=== PATIENT | female | born 1935 | race Caucasian/White ===

== ENCOUNTER 2019-10-22 14:13 | Emergency (ER) | payer MEDICARE, OTHER ==
[~2019-10-22] VITALS: Ht 160 cm; Wt 46.3 kg
[~2019-10-22 14:13] MED LIST: ALBU2.5V7 NEB; LEVO50TA8 PO; PARO10TA86 PO; SIMV-46 PO
--- NOTE | 2019-10-22 14:40 | NUR ---
Dr. Power at bedside for MSE
[2019-10-22] MEDS ORDERED: predniSONE 20 MG TABLET ONE (14:57)
[2019-10-22] MEDS: predniSONE 10 MG TABLET PO ONE (15:00)
[2019-10-22 15:29] LABS: BASOPHILS # (AUTO) 0.2 K/uL (0.0-8.0); EOSINOPHILS # (AUTO) 0.4 K/uL (0.0-0.7); EOSINOPHILS % (AUTO) 6.7 % (0.0-7.0); HEMATOCRIT 38.3 % (31.2-41.9); HEMOGLOBIN 12.8 g/dL (10.9-14.3); LYMPHOCYTES # (AUTO) 1.8 K/uL (20.0-40.0); LYMPHOCYTES % (AUTO) 27.3 % (20.5-51.5); MEAN CORPUSCULAR HEMOGLOBIN 29.8 uug (24.7-32.8); MEAN CORPUSCULAR HGB CONC 34 g/dL (32.3-35.6); MEAN CORPUSCULAR VOLUME 88.8 fL (75.5-95.3); MONOCYTES # (AUTO) 0.6 K/uL (2.0-10.0); MONOCYTES % (AUTO) 9.4 % (0.0-11.0); NEUTROPHILS # (AUTO) 3.5 K/uL (1.8-8.9); NEUTROPHILS % (AUTO) 53.6 % (38.5-71.5); PLATELET COUNT (AUTO) 192 K/uL (179-408); RED BLOOD CELL COUNT(AUTO) 4.31 MIL/uL (3.63-4.92); WHITE BLOOD COUNT (AUTO) 6.5 K/uL (3.8-11.8)
[2019-10-22 15:34] LABS: POTASSIUM 4.2 mmol/L (3.5-5.1)
[2019-10-22 15:46] LABS: BILIRUBIN,DIRECT 0.1 mg/dL (0.0-0.2); BILIRUBIN,TOTAL 0.4 mg/dL (0.2-1.0); TOTAL PROTEIN, SERUM 6.7 g/dL (6.4-8.2)
--- NOTE | 2019-10-22 16:10 | NUR ---
Patient discharged to home in stable condition. Written and verbal after care instructions given. Patient verbalizes understanding of instructions. Stressed follow up or return to ER for worsening s/s. Patient ambulating with steady gait. NAD noted
[2019-10-22 16:12] VITALS: BP 118/75
== END 2019-10-22 16:10 | disposition home or self-care (01) ==
LOC: ER 14:13
DX: J20.9 Acute bronchitis, unspecified (principal); J42 Unspecified chronic bronchitis; E03.9 Hypothyroidism, unspecified; E78.5 Hyperlipidemia, unspecified; Z87.01 Personal history of pneumonia (recurrent); Z79.899 Other long term (current) drug therapy; I49.3 Ventricular premature depolarization
CPT/HCPCS: 36415; 71045; 76604; 80048; 80076; 83880; 84484; 85025; 93005; 93308; 99285; J7512; 70030-TC; A4663

== ENCOUNTER 2024-07-06 04:54 | Inpatient (IN) | payer MEDICARE ==
[~2024-07-06] VITALS: Ht 160 cm; Wt 44.1 kg
[2024-07-06] MEDS: IV NORMAL SALINE 500 ML BAG IV ONE (05:15)
[2024-07-06] MEDS: MORPHINE SULFATE 2 MG/1 ML DISP.SYRIN IV ONE (05:15)
[2024-07-06] MEDS: FAMOTIDINE. 20 MG/2 ML VIAL IV ONE (05:15)
[2024-07-06 05:37] LABS: BASOPHILS # (AUTO) 0.1 K/UL (0.0-0.2); EOSINOPHILS # (AUTO) 0.2 K/uL (0.0-0.7); EOSINOPHILS % (AUTO) 1.3 % (0.0-7.0); LYMPHOCYTES # (AUTO) 1.3 K/uL (0.8-4.8); MONOCYTES # (AUTO) 0.6 K/uL (0.1-1.30)
[2024-07-06 05:46] LABS: CALCIUM 9.9 mg/dL (8.5-10.1); CARBON DIOXIDE 25 mmol/L (21-32); CHLORIDE 104 mmol/L (98-107); CREATININE 0.8 mg/dL (0.6-1.3); GLUCOSE 179 mg/dL (74-106); POTASSIUM 4.2 mmol/L (3.5-5.1); SODIUM SERUM 139 mmol/L (136-145); UREA NITROGEN, BLOOD 29 mg/dL (7-18)
[2024-07-06 05:49] LABS: DIFFERENTIAL COMMENT 1
[2024-07-06 05:52] LABS: ALANINE AMINOTRANSFERASE 30 U/L (14-59); ALBUMIN 3.8 g/dL (3.4-5.0); ALKALINE PHOSPHATASE 83 U/L (50-136); ASPARTATE AMINOTRANSFERASE 28 U/L (15-37); BILIRUBIN,DIRECT 0.2 mg/dL (0.0-0.2); BILIRUBIN,TOTAL 0.8 mg/dL (0.2-1.0); LIPASE 34 U/L (16-77); TOTAL PROTEIN, SERUM 6.7 g/dL (6.4-8.2)
[2024-07-06 05:57] LABS: NUCLEATED RED BLOOD CELLS 0.1 /100WBC
[2024-07-06] MEDS ORDERED: MORPHINE SULFATE 2 MG/1 ML DISP.SYRIN ONE (06:14)
[2024-07-06] MEDS ORDERED: FAMOTIDINE. 20 MG/2 ML VIAL IV ONE (06:14)
[2024-07-06 06:29] LABS: HEMATOCRIT 41.5 % (31.2-41.9); RED BLOOD CELL COUNT(AUTO) 4.65 MIL/uL (3.63-4.92); WHITE BLOOD COUNT (AUTO) 12.2 K/uL (3.8-11.8)
[2024-07-06 06:30] LABS: LYMPHOCYTES % (AUTO) 10.4 % (20.5-51.5); MEAN CORPUSCULAR HEMOGLOBIN 30.1 uug (24.7-32.8); MEAN CORPUSCULAR HGB CONC 34 g/dL (32.3-35.6); MEAN CORPUSCULAR VOLUME 89.4 fL (75.5-95.3); NEUTROPHILS % (AUTO) 82.7 % (38.5-71.5); PLATELET COUNT (AUTO) 178 K/uL (179-408); RED CELL DISTRIBUTION WIDTH 14.1 % (12.3-17.7)
[2024-07-06 06:31] LABS: BASOPHILS % (AUTO) 0.5 % (0.0-2.0); MONOCYTES % (AUTO) 5.1 % (0.0-11.0); NEUTROPHILS # (AUTO) 10.1 K/uL (1.8-8.9); NEUTROPHILS % (MANUAL) 0 % (42-75)
[2024-07-06] MEDS ORDERED: LIDOCAINE 2% (GLYDO= UROJET) 10 ML JELLY MM ONE (07:07)
[2024-07-06] MEDS: LIDOCAINE 2% (GLYDO= UROJET) 10 ML JELLY MM ONE (07:40)
[2024-07-06] MEDS: IV NS 1000 ML 1,000 ML IV ONE (07:40)
[2024-07-06 10:10] VITALS: BP 98/62; TEMP 97.9; O2SAT 94
[2024-07-06 11:02] VITALS: O2SAT 96
[2024-07-06] MEDS ORDERED: MULT-225 PO (11:19)
[2024-07-06] MEDS ORDERED: PARO20TA7 PO (11:19)
[2024-07-06] MEDS ORDERED: ASCO500C18 PO (11:19)
[2024-07-06] MEDS ORDERED: CALC-343 PO (11:20)
[2024-07-06] MEDS ORDERED: OMEG1CAP74 PO (11:20)
[2024-07-06] MEDS ORDERED: CALC-1026 PO (11:21)
[2024-07-06] MEDS ORDERED: ERGO400C PO (11:23)
[2024-07-06] MEDS ORDERED: UBID10CA4 PO (11:24)
[2024-07-06] MEDS ORDERED: SELE200C PO (11:24)
[2024-07-06] MEDS ORDERED: REMEDY ESSENTIAL ZINC PASTE 113 GM TP PRN (12:45)
[2024-07-06] MEDS ORDERED: ONDANSETRON 4 MG/2 ML VIAL IV PRN (12:45)
[2024-07-06] MEDS ORDERED: KETOROLAC TROMETHAMINE 15 MG INJ IVP PRN (12:45)
[2024-07-06] MEDS: IV NS 1000 ML 1,000 ML IV PRN (13:35)
[2024-07-06] MEDS ORDERED: DIATR MEGLU/DIATRIZOATE SODIUM 120 ML BOTTLE ONE (14:00)
[2024-07-06 15:20] VITALS: BP 116/45; TEMP 98.2; O2SAT 96
[2024-07-06 20:00] VITALS: BP 136/53; TEMP 97.3; O2SAT 97
[2024-07-06] MEDS: ENOXAPARIN SODIUM 40 MG/0.4 ML DISP.SYRIN SQ SCH (20:19)
[2024-07-06] MEDS: ACETAMINOPHEN 325 MG TABLET PO PRN (22:36)
[2024-07-07 06:00] VITALS: BP 92/44; TEMP 97.5; O2SAT 97
[2024-07-07 07:10] LABS: BASOPHILS # (AUTO) 0.1 K/UL (0.0-0.2); BASOPHILS % (AUTO) 1.2 % (0.0-2.0); EOSINOPHILS # (AUTO) 0.2 K/uL (0.0-0.7); EOSINOPHILS % (AUTO) 4.1 % (0.0-7.0); HEMATOCRIT 33.8 % (31.2-41.9); HEMOGLOBIN 11.4 g/dL (10.9-14.3); LYMPHOCYTES # (AUTO) 1.9 K/uL (0.8-4.8); LYMPHOCYTES % (AUTO) 36.7 % (20.5-51.5); MEAN CORPUSCULAR HEMOGLOBIN 30.6 uug (24.7-32.8); MEAN CORPUSCULAR HGB CONC 34 g/dL (32.3-35.6); MEAN CORPUSCULAR VOLUME 90.5 fL (75.5-95.3); MONOCYTES # (AUTO) 0.5 K/uL (0.1-1.30); MONOCYTES % (AUTO) 10.1 % (0.0-11.0); NEUTROPHILS # (AUTO) 2.5 K/uL (1.8-8.9); NEUTROPHILS % (AUTO) 47.9 % (38.5-71.5); PLATELET COUNT (AUTO) 135 K/uL (179-408); RED BLOOD CELL COUNT(AUTO) 3.73 MIL/uL (3.63-4.92); WHITE BLOOD COUNT (AUTO) 5.2 K/uL (3.8-11.8)
[2024-07-07 07:21] LABS: CALCIUM 8.6 mg/dL (8.5-10.1); CARBON DIOXIDE 28 mmol/L (21-32); CHLORIDE 111 mmol/L (98-107); CREATININE 0.7 mg/dL (0.6-1.3); DIFFERENTIAL COMMENT 1; GLUCOSE 85 mg/dL (74-106); MAGNESIUM 2.2 mg/dL (1.8-2.4); PHOSPHOROUS 2.6 mg/dL (2.5-4.9); SODIUM SERUM 145 mmol/L (136-145); UREA NITROGEN, BLOOD 15 mg/dL (7-18)
[2024-07-07 08:06] LABS: *BILIRUBIN,URIN NEGATIVE (NEGATIVE); *BLOOD, URINE NEGATIVE (NEGATIVE); *CLARITY,URINE CLEAR (CLEAR); *COLOR,URINE YELLOW (YELLOW); *KETONES,URINE NEGATIVE (NEGATIVE); *PROTEIN,URINE NEGATIVE (NEGATIVE); *UROBILINOGEN,URINE 0.2 E.U./dl (NORMAL); LEUKOCYTE ESTERASE ,URINE NEGATIVE (NEGATIVE); NITRITE, URINE NEGATIVE (NEGATIVE); PH,URINE 6.5 (5.0-8.0); UGLUCOSE NEGATIVE (NEGATIVE)
[2024-07-07] MEDS: PANTOPRAZOLE SODIUM 40 MG VIAL IV SCH (08:37)
[2024-07-07 11:43] VITALS: BP 110/46; TEMP 98.5; O2SAT 94
[2024-07-07 15:48] VITALS: BP 99/47; TEMP 97.8; O2SAT 95
[2024-07-07 19:15] VITALS: BP 134/50; TEMP 98.4; O2SAT 96
[2024-07-08 05:46] VITALS: BP 121/48; TEMP 97.7; O2SAT 96
[2024-07-08 11:19] VITALS: BP 141/63; TEMP 98.2; O2SAT 94
[2024-07-08] MEDS ORDERED: GLUCERNA SHAKE 237 ML CAN PO SCH (17:00)
[2024-07-09] MEDS ORDERED: PANTOPRAZOLE SODIUM 40 MG TABLET.DR PO SCH (07:00)
== END 2024-07-08 15:20 | disposition home or self-care (01) | DRG 390 ==
LOC: ER 05:02 → MEDSURG3 09:20
PROC: 0D9670Z Drainage of Stomach with Drainage Device, Via Natural or Artificial Opening (ICD-10-PCS; principal; 2024-07-06)
PROC: 05HC33Z Insertion of Infusion Device into Left Basilic Vein, Percutaneous Approach (ICD-10-PCS; 2024-07-06)
DX: K56.609 Unspecified intestinal obstruction, unspecified as to partial versus complete obstruction (principal); J42 Unspecified chronic bronchitis; E03.9 Hypothyroidism, unspecified; R79.89 Other specified abnormal findings of blood chemistry; E78.5 Hyperlipidemia, unspecified; E11.9 Type 2 diabetes mellitus without complications; Z87.442 Personal history of urinary calculi; D72.829 Elevated white blood cell count, unspecified; Z87.01 Personal history of pneumonia (recurrent); Z90.49 Acquired absence of other specified parts of digestive tract; Z87.898 Personal history of other specified conditions; Z79.890 Hormone replacement therapy; Z79.899 Other long term (current) drug therapy
CPT/HCPCS: 36415; 74250; 83605; 83690; 83735; 84100; 84484; 85025; 85730; A4663; G0378; J1308; J1650; J2270; J2470; J7040; Q9963